=== PATIENT | female | born 1930 | race Caucasian/White ===

== ENCOUNTER 2016-11-12 18:36 | Emergency (ER) | payer MEDICARE, BC ==
[~2016-11-12] VITALS: Wt 49.1 kg
[~2016-11-12 18:36] MED LIST: ARICEPT5 M1 PO; ASPIRIN 81M81 MG/TA2 PO; ASPIRIN E.C. 8181 MG PO; CARAFATE 1GM1 G PO; CARAFATE1 G1 PO; CARDIZEM 60MG T60 MG PO; COUMADIN 22.5 MG/TAB PO; DIGOXIN0.125 MG PO; DULERA1 ARO IH; EVISTA 60MG60 MG/TAB PO; LOPRESSOR 550 MG/TAB PO; NATURE S BLEND PO; NORCO 325 MG-51 TA1 PO; NORCO 325 MG-51 TAB PO; NTG 0.4; PREDNISONE20 M1 PO; SIMVASTATIN80 MG PO; SPIRIVA INH IH; SPIRIVA18 MCG IH; VIBRAMYCIN100 MG PO; WARFARIN SODIUM1 MG PO; WARFARIN SODIUM2 MG PO; ZOCOR40 M1 PO
[2016-11-12] MEDS ORDERED: CALCIUM + D3 E1 EACH PO (18:51)
[2016-11-12 20:31] VITALS: BP 144/89
== END 2016-11-12 20:40 | disposition home or self-care (01) ==
LOC: ED 18:36
DX: R41.82 Altered mental status, unspecified (principal); F03.90 Unspecified dementia, unspecified severity, without behavioral disturbance, psychotic disturbance, mood disturbance, and anxiety; I48.91 Unspecified atrial fibrillation; I25.2 Old myocardial infarction; J44.9 Chronic obstructive pulmonary disease, unspecified; I10 Essential (primary) hypertension; Z86.73 Personal history of transient ischemic attack (TIA), and cerebral infarction without residual deficits; Z79.01 Long term (current) use of anticoagulants

== ENCOUNTER 2016-11-20 10:10 | Emergency (ER) | payer MEDICARE, BC ==
[~2016-11-20 10:10] MED LIST changes: +CALCIUM + D3 E1 EACH PO
[2016-11-20 14:00] VITALS: BP 124/82
== END 2016-11-20 13:58 | disposition home or self-care (01) ==
LOC: ED 10:10
DX: I10 Essential (primary) hypertension (principal); Z91.14 Patient's other noncompliance with medication regimen; R51 Headache
CPT/HCPCS: A4353; J1885

== ENCOUNTER 2016-12-02 11:27 | Emergency (ER) | payer MEDICARE, BC | END 2016-12-02 13:51 | disposition E | LOC: ED 11:27 | DX: I46.9 Cardiac arrest, cause unspecified (principal); I25.10 Atherosclerotic heart disease of native coronary artery without angina pectoris | CPT/HCPCS: J0171 ==